=== PATIENT | female | born 1935 | race Caucasian/White ===

== ENCOUNTER 2017-11-05 13:12 | Day surgery (SDC) | payer MEDICARE ==
[~2017-11-05] VITALS: Ht 154.9 cm; Wt 52.4 kg
[~2017-11-05 13:12] MED LIST: ALBU90OI INH; AMOCLA875 PO; ASPI81EC PO; COLE625 PO; FURO40 PO; LEVSOD100 PO; LOSHYD; LOSHYD100 PO; METO100ER; METO100ER PO; POTCHL10ER PO; SYNTHROID/LEVOTHROID; TORSE20
[2017-11-05] MEDS ORDERED: AMLO5 (13:36)
[2017-11-05] MEDS ORDERED: NEBI5 (13:36)
== END 2017-11-05 15:25 | disposition home or self-care (01) ==
LOC: ORSCSDS 13:12
PROVIDERS: Anesthesiology
PROC: 3E0R33Z Introduction of Anti-inflammatory into Spinal Canal, Percutaneous Approach (ICD-10-PCS; principal; 2017-11-05 15:00)
DX: M50.321 Other cervical disc degeneration at C4-C5 level (principal); M48.02 Spinal stenosis, cervical region; I10 Essential (primary) hypertension; E03.9 Hypothyroidism, unspecified; Z79.82 Long term (current) use of aspirin; Z79.899 Other long term (current) drug therapy
CPT/HCPCS: J1040; J2250; J3010; J7040

== ENCOUNTER 2017-11-23 11:21 | Day surgery (SDC) | payer MEDICARE ==
[~2017-11-23] VITALS: Ht 154.9 cm; Wt 53.4 kg
[~2017-11-23 11:21] MED LIST changes: +AMLO5; +NEBI5
== END 2017-11-23 12:38 | disposition home or self-care (01) ==
LOC: ORSCSDS 11:21
PROVIDERS: Anesthesiology
PROC: 3E0R33Z Introduction of Anti-inflammatory into Spinal Canal, Percutaneous Approach (ICD-10-PCS; principal; 2017-11-23 12:15)
DX: M50.122 Cervical disc disorder at C5-C6 level with radiculopathy (principal); M48.02 Spinal stenosis, cervical region; I10 Essential (primary) hypertension; E03.9 Hypothyroidism, unspecified; Z79.82 Long term (current) use of aspirin; Z79.899 Other long term (current) drug therapy
CPT/HCPCS: J1040; J2250; J3010; J7040

== ENCOUNTER 2020-09-13 12:16 | Emergency (ER) | payer MEDICARE ==
[~2020-09-13] VITALS: Ht 154.9 cm; Wt 56.7 kg
[2020-09-13 13:10] LABS: BASOPHILS ABSOLUTE AUTO 0.06 K/mm3 (0.00-0.23); BASOPHILS PERCENT AUTO 1 % (0-2); EOSINOPHILS ABSOLUTE AUTO 0.14 K/mm3 (0.00-0.68); EOSINOPHILS PERCENT AUTO 1 % (0-6); Hematocrit 36.7 % (33.0-51.0); Hemoglobin 12.3 g/dL (11.5-16.0); IMMATURE GRAN ABSOLUTE AUTO 0.04 K/mm3 (0.00-0.10); IMMATURE GRAN PERCENT AUTO 0 % (0-1); LYMPHOCYTES ABSOLUTE AUTO 2.46 K/mm3 (0.84-5.20); LYMPHOCYTES PERCENT AUTO 25 % (21-46); MONOCYTES ABSOLUTE AUTO 1.42 K/mm3 (0.16-1.47); MONOCYTES PERCENT AUTO 14 % (4-13); Mean Corpuscular HGB 29.4 pg (26.0-34.0); Mean Corpuscular HGB Conc 33.5 g/dL (31.5-36.5); Mean Corpuscular Volume 88 fL (80-100); Mean Platelet Volume 9.5 fL (9.1-12.4); NEUTROPHILS PERCENT AUTO 59 % (41-73); Platelet Count 424 K/mm3 (150-400); RDW Coefficient Variation 13.4 % (11.7-14.2); RDW Standard Deviation 43.2 fL (35.1-46.3); Red Blood Cell Count 4.19 M/mm3 (3.80-5.20); White Blood Cell Count 10.02 K/mm3 (4.00-11.30)
[2020-09-13 13:29] LABS: Alanine Aminotransfer (ALT/SGP 22 U/L (12-78); Albumin, Blood 3.4 g/dL (3.4-5.0); Albumin/Globulin Ratio 0.7 (0.8-1.8); Alk Phos 156 U/L (50-136); Anion Gap 5 mmol/L (6-16); Aspartate Aminotrans (AST/SGOT 20 U/L (12-37); Bilirubin, Total 0.4 mg/dL (0.1-1.0); Blood Urea Nitrogen 46 mg/dL (8-24); Bun/Creatinine Ratio 37.1 (12.0-20.0); CO2, Blood 36 mmol/L (21-32); Calcium, Blood 10.2 mg/dL (8.5-10.1); Chloride, Blood 90 mmol/L (98-108); Creatinine, Blood 1.24 mg/dL (0.40-1.00); Globulin, Blood 4.7 g/dL (2.2-4.0); Glomerular Filtration Rate 44 (60-); Glucose, Blood 105 mg/dL (70-99); Potassium, Blood 3.6 mmol/L (3.5-5.5); Sodium, Blood 131 mmol/L (136-145); Total Protein, Blood 8.1 g/dL (6.4-8.2); Troponin I <0.015 ng/mL (0.000-0.040)
[2020-09-13] MEDS ORDERED: OXYC5 (17:06)
[2020-09-13] MEDS ORDERED: LETR2.5 PO (17:06)
[2020-09-13] MEDS ORDERED: CYCL10 (17:08)
[2020-09-13] MEDS ORDERED: METPRE4DP PO (19:45)
== END 2020-09-13 20:38 | disposition home or self-care (01) ==
LOC: ER 12:16
PROVIDERS: Physician Assistant
DX: M54.12 Radiculopathy, cervical region (principal); M96.89 Other intraoperative and postprocedural complications and disorders of the musculoskeletal system; Z79.899 Other long term (current) drug therapy; Z88.2 Allergy status to sulfonamides; Z88.5 Allergy status to narcotic agent
CPT/HCPCS: 36415; 71045; 72040; 73030; 80053; 83880; 84484; 85025; 93005; 93010; 96374; 96375; 99284-25; J2270; J2405

== ENCOUNTER 2020-09-19 15:39 | Emergency (ER) | payer MEDICARE ==
[~2020-09-19] VITALS: Ht 154.9 cm; Wt 54.4 kg
[~2020-09-19 15:39] MED LIST changes: +CYCL10; +LETR2.5 PO; +METPRE4DP PO; +OXYC5
[2020-09-19 16:24] LABS: BASOPHILS ABSOLUTE AUTO 0.11 K/mm3 (0.00-0.23); BASOPHILS PERCENT AUTO 1 % (0-2); EOSINOPHILS ABSOLUTE AUTO 0.17 K/mm3 (0.00-0.68); EOSINOPHILS PERCENT AUTO 1 % (0-6); Hemoglobin 12.9 g/dL (11.5-16.0); IMMATURE GRAN ABSOLUTE AUTO 0.49 K/mm3 (0.00-0.10); IMMATURE GRAN PERCENT AUTO 3 % (0-1); LYMPHOCYTES ABSOLUTE AUTO 3.25 K/mm3 (0.84-5.20); LYMPHOCYTES PERCENT AUTO 21 % (21-46); MONOCYTES ABSOLUTE AUTO 1.28 K/mm3 (0.16-1.47); MONOCYTES PERCENT AUTO 8 % (4-13); Mean Corpuscular HGB 29.5 pg (26.0-34.0); Mean Corpuscular HGB Conc 33.9 g/dL (31.5-36.5); Mean Corpuscular Volume 87 fL (80-100); Mean Platelet Volume 8.7 fL (9.1-12.4); NEUTROPHILS ABSOLUTE AUTO 10.54 K/mm3 (1.96-9.15); NEUTROPHILS PERCENT AUTO 67 % (41-73); Platelet Count 551 K/mm3 (150-400); RDW Standard Deviation 40.8 fL (35.1-46.3); Red Blood Cell Count 4.38 M/mm3 (3.80-5.20); White Blood Cell Count 15.84 K/mm3 (4.00-11.30)
[2020-09-19 16:48] LABS: Alanine Aminotransfer (ALT/SGP 18 U/L (12-78); Albumin, Blood 3.5 g/dL (3.4-5.0); Albumin/Globulin Ratio 0.9 (0.8-1.8); Alk Phos 128 U/L (50-136); Anion Gap 12 mmol/L (6-16); Aspartate Aminotrans (AST/SGOT 15 U/L (12-37); Bilirubin, Total 0.3 mg/dL (0.1-1.0); Blood Urea Nitrogen 52 mg/dL (8-24); Bun/Creatinine Ratio 36.6 (12.0-20.0); CO2, Blood 35 mmol/L (21-32); Calcium, Blood 9.9 mg/dL (8.5-10.1); Chloride, Blood 83 mmol/L (98-108); Creatinine, Blood 1.42 mg/dL (0.40-1.00); Globulin, Blood 4.1 g/dL (2.2-4.0); Glomerular Filtration Rate 37 (60-); Glucose, Blood 133 mg/dL (70-99); Potassium, Blood 2.9 mmol/L (3.5-5.5); Sodium, Blood 130 mmol/L (136-145); Total Protein, Blood 7.6 g/dL (6.4-8.2); Troponin I <0.015 ng/mL (0.000-0.040)
[2020-09-19] MEDS ORDERED: POTA20PAC PO (17:20)
== END 2020-09-19 18:10 | disposition home or self-care (01) ==
LOC: ER 15:39
PROVIDERS: Emergency Medicine
DX: R55 Syncope and collapse (principal); E87.6 Hypokalemia; I12.9 Hypertensive chronic kidney disease with stage 1 through stage 4 chronic kidney disease, or unspecified chronic kidney disease; N18.9 Chronic kidney disease, unspecified; Z79.899 Other long term (current) drug therapy
CPT/HCPCS: 71045; 80053; 83735; 84484; 85025; 93005; 93010; 99284-25; A9270; J7030

== ENCOUNTER 2020-10-25 08:25 | Day surgery (SDC) | payer MEDICARE ==
[~2020-10-25] VITALS: Ht 154.9 cm; Wt 55.3 kg
[~2020-10-25 08:25] MED LIST changes: +POTA20PAC PO
== END 2020-10-25 16:34 | disposition home or self-care (01) ==
LOC: ORSCSDS 08:25
PROVIDERS: Internal Medicine Gastroenterology
PROC: 0DBE8ZX Excision of Large Intestine, Via Natural or Artificial Opening Endoscopic, Diagnostic (ICD-10-PCS; principal; 2020-10-25 09:45)
PROC: 0DB58ZX Excision of Esophagus, Via Natural or Artificial Opening Endoscopic, Diagnostic (ICD-10-PCS; principal; 2020-10-25 09:45)
PROC: 0D758ZZ Dilation of Esophagus, Via Natural or Artificial Opening Endoscopic (ICD-10-PCS; principal; 2020-10-25 09:45)
DX: R13.10 Dysphagia, unspecified (principal); R19.7 Diarrhea, unspecified; K52.831 Collagenous colitis; K21.9 Gastro-esophageal reflux disease without esophagitis; N18.9 Chronic kidney disease, unspecified; E87.6 Hypokalemia; K44.9 Diaphragmatic hernia without obstruction or gangrene; K22.2 Esophageal obstruction; K22.10 Ulcer of esophagus without bleeding; K22.0 Achalasia of cardia; Z79.899 Other long term (current) drug therapy; Z79.82 Long term (current) use of aspirin
CPT/HCPCS: 88305; 88313; C1726; J2704; J7120

== ENCOUNTER 2020-11-18 10:40 | Emergency (ER) | payer MEDICARE ==
[~2020-11-18] VITALS: Ht 152.4 cm; Wt 54.4 kg
[2020-11-18] MEDS ORDERED: OXAYDO5 M1 PO (13:07)
[2020-11-18] MEDS ORDERED: ONDA4ODT MM (13:32)
== END 2020-11-18 13:45 | disposition home or self-care (01) ==
LOC: ER 10:40
DX: S42.341A Displaced spiral fracture of shaft of humerus, right arm, initial encounter for closed fracture (principal); I10 Essential (primary) hypertension; Z88.2 Allergy status to sulfonamides; Z88.5 Allergy status to narcotic agent; Z79.899 Other long term (current) drug therapy; Z79.82 Long term (current) use of aspirin; W01.198A Fall on same level from slipping, tripping and stumbling with subsequent striking against other object, initial encounter
CPT/HCPCS: 29105; 73030; 73060; 73562-LT; 96374-59; 96375-59; 96376-59; 99284-25; J2270; J2405; J3010

== ENCOUNTER 2024-02-16 18:01 | Inpatient (IN) | payer MEDICARE ==
[~2024-02-16] VITALS: Ht 144.8 cm; Wt 54.4 kg
[~2024-02-16 18:01] MED LIST changes: +ACET500 PO; +ALEN70; -ASPI81EC PO; +Aspir 8181 MG PO; +DIPATR PO; -FURO40 PO; +FURO80 PO; +GABA100 PO; +K-Dur20 MEQ PO; -LEVSOD100 PO; +LEVSOD75 PO; +LOSARTAN-HCTZ1 EACH PO; -LOSHYD100 PO; -NEBI5; +NEBI5 PO; +NITROLINGUAL12 GM; +ONDA4ODT MM; +OXAYDO5 M1 PO; -POTCHL10ER PO
[2024-02-16 18:29] LABS: BASOPHILS ABSOLUTE AUTO 0.06 K/mm3 (0.00-0.23); BASOPHILS PERCENT AUTO 1 % (0-2); EOSINOPHILS ABSOLUTE AUTO 0.25 K/mm3 (0.00-0.68); EOSINOPHILS PERCENT AUTO 2 % (0-6); Hemoglobin 12.4 g/dL (11.5-16.0); IMMATURE GRAN ABSOLUTE AUTO 0.08 K/mm3 (0.00-0.10); IMMATURE GRAN PERCENT AUTO 1 % (0-1); LYMPHOCYTES ABSOLUTE AUTO 3.29 K/mm3 (0.84-5.20); LYMPHOCYTES PERCENT AUTO 26 % (21-46); MONOCYTES ABSOLUTE AUTO 0.78 K/mm3 (0.16-1.47); MONOCYTES PERCENT AUTO 6 % (4-13); Mean Corpuscular HGB 29.1 pg (26.0-34.0); Mean Corpuscular HGB Conc 33.5 g/dL (31.5-36.5); Mean Corpuscular Volume 87 fL (80-100); Mean Platelet Volume 10.4 fL (9.1-12.4); NEUTROPHILS ABSOLUTE AUTO 8.42 K/mm3 (1.96-9.15); NEUTROPHILS PERCENT AUTO 65 % (41-73); Platelet Count 161 K/mm3 (150-400); RDW Coefficient Variation 13.7 % (11.7-14.2); RDW Standard Deviation 43.3 fL (35.1-46.3); Red Blood Cell Count 4.26 M/mm3 (3.80-5.20); White Blood Cell Count 12.88 K/mm3 (4.00-11.30)
[2024-02-16 18:55] LABS: Albumin, Blood 3.2 g/dL (3.4-5.0); Albumin/Globulin Ratio 0.8 (0.8-1.8); Bilirubin, Total 0.3 mg/dL (0.1-1.0); Bun/Creatinine Ratio 16.7 (12.0-20.0); Calcium, Blood 9.6 mg/dL (8.5-10.1); Creatinine, Blood 2.4 mg/dL (0.40-1.00); Globulin, Blood 3.8 g/dL (2.2-4.0); Potassium, Blood 3.4 mmol/L (3.5-5.5)
[2024-02-16] MEDS ORDERED: NS 1,000 ML IV SCH ×2 (21:00→23:00)
[2024-02-16 21:35] LABS: Source, Urine Clean Catch
[2024-02-16 21:54] LABS: Bilirubin, Urine Neg (Neg); Blood, Urine 1+ (Neg); Glucose Qualitative, Urine Neg (Neg); Ketones, Urine Neg (Neg); Leukocyte Esterase, Urine 1+ (Neg); Nitrite, Urine Neg (Neg); Protein, Urine Neg (Neg); Urobilinogen, Urine NORM (Normal)
[2024-02-16 22:07] LABS: Appearance, Urine Clear (Clear); Color, Urine Yellow (P-Yellow)
[2024-02-16 22:09] LABS: Bacteria Few /hpf; Red Blood Cells, Urine 0-2 /hpf (0-2); Squamous Epithelial Cells Few /hpf (Few); White Blood Cells, Urine 0-2 /hpf (0-5)
[2024-02-16 22:31] LABS: Thyroid Stimulating Hormone 0.716 uIU/mL (0.360-4.800)
[2024-02-16] MEDS ORDERED: Potassium Chloride 10 Meq Tablet SA PO ONE (23:00)
[2024-02-16 23:48] LABS: Influenza A, PCR NEGATIVE (NEGATIVE); Influenza B, PCR NEGATIVE (NEGATIVE); Resp Syncytial Virus, PCR NEGATIVE (NEGATIVE); SARS-Cov-2 (COVID-19) PCR, MMC NEGATIVE (NEGATIVE)
[2024-02-17 00:56] VITALS: BP 156/56
[2024-02-17] MEDS ORDERED: Acetaminophen 325 MG TABLET PO PRN (01:40)
[2024-02-17] MEDS ORDERED: NEBI10 PO (01:55)
[2024-02-17] MEDS ORDERED: LOSARTAN-HCTZ1 EAC5 PO (01:56)
[2024-02-17] MEDS ORDERED: BUME1 PO (01:57)
[2024-02-17] MEDS ORDERED: Diphenoxylat/Atrop 2.5 / 0.025MG 1 Tab PO PRN (02:40)
[2024-02-17 04:01] VITALS: BP 123/56
[2024-02-17 04:32] LABS: BASOPHILS ABSOLUTE AUTO 0.06 K/mm3 (0.00-0.23); BASOPHILS PERCENT AUTO 1 % (0-2); EOSINOPHILS ABSOLUTE AUTO 0.34 K/mm3 (0.00-0.68); EOSINOPHILS PERCENT AUTO 3 % (0-6); Hematocrit 34.4 % (33.0-51.0); Hemoglobin 11.4 g/dL (11.5-16.0); IMMATURE GRAN ABSOLUTE AUTO 0.05 K/mm3 (0.00-0.10); IMMATURE GRAN PERCENT AUTO 0 % (0-1); LYMPHOCYTES ABSOLUTE AUTO 2.79 K/mm3 (0.84-5.20); LYMPHOCYTES PERCENT AUTO 25 % (21-46); MONOCYTES ABSOLUTE AUTO 0.69 K/mm3 (0.16-1.47); MONOCYTES PERCENT AUTO 6 % (4-13); Mean Corpuscular HGB 28.8 pg (26.0-34.0); Mean Corpuscular HGB Conc 33.1 g/dL (31.5-36.5); Mean Corpuscular Volume 87 fL (80-100); Mean Platelet Volume 10.5 fL (9.1-12.4); NEUTROPHILS ABSOLUTE AUTO 7.25 K/mm3 (1.96-9.15); NEUTROPHILS PERCENT AUTO 65 % (41-73); Platelet Count 142 K/mm3 (150-400); RDW Coefficient Variation 13.5 % (11.7-14.2); RDW Standard Deviation 43.1 fL (35.1-46.3); Red Blood Cell Count 3.96 M/mm3 (3.80-5.20); White Blood Cell Count 11.18 K/mm3 (4.00-11.30)
[2024-02-17 05:05] LABS: Albumin, Blood 2.9 g/dL (3.4-5.0); Bilirubin, Total 0.3 mg/dL (0.1-1.0); Bun/Creatinine Ratio 17.7 (12.0-20.0); Creatinine, Blood 1.98 mg/dL (0.40-1.00); Potassium, Blood 3.3 mmol/L (3.5-5.5); Total Protein, Blood 5.9 g/dL (6.4-8.2)
[2024-02-17] MEDS ORDERED: Levothyroxine Sodium 0.075 MG Tab PO SCH (06:00)
--- NOTE | 2024-02-17 07:29 | NUR ---
ADMIT NOTE. A/OX4. ROOM AIR. UNSTEADY GAIT, 1 ASSIST WITH WALKER. IV FLUID REPLACEMENT. CONTINENT. SKIN INTACT. ABLE TO MAKE NEEDS KNOWN. CALLS APPROPRIATELY. CALL LIGHT IN REACH. NO ACUTE EVENTS OVERNIGHT.
[2024-02-17 07:30] VITALS: BP 120/53
[2024-02-17] MEDS ORDERED: Potassium Chl 20MEQ/Water100ML 100 ML IV STA (08:48)
[2024-02-17] MEDS ORDERED: Enoxaparin 30 MG/0.3 ML SYR SC SCH (09:00)
[2024-02-17] MEDS ORDERED: Aspirin 81 MG TabEC PO SCH (09:00)
[2024-02-17] MEDS ORDERED: NS 1,000 ML IV SCH (12:35)
[2024-02-17 15:49] VITALS: BP 150/68
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
[2024-02-17 20:28] VITALS: BP 160/55
[2024-02-18 02:41] VITALS: BP 148/59
--- NOTE | 2024-02-18 03:50 | NUR ---
SHIFT SUMMARY REMAINS ALERT AND ORIENTED. IVF INFUSING X1 BAG AT 75 ML/HR. CALLS APPROPRIATELY TO USE BATHROOM. REPORTS MIGRAINE AND PAIN TO LEFT WRIST OLD SURGERY SITE. PRN TYLENOL GIVEN. NONPITTING EDEMA TO BILATERAL LE, AND LEFT ARM WHERE FLUIDS ARE INFUSING. POWERGLIDE TO NANCY DRAWING BACK BLOOD AND FLUHSING WELL. 1 ASSIT WITH FWW TO BATHROOM
[2024-02-18 07:10] LABS: Bun/Creatinine Ratio 15.5 (12.0-20.0); Calcium, Blood 8.5 mg/dL (8.5-10.1); Creatinine, Blood 1.1 mg/dL (0.40-1.00); Potassium, Blood 3.3 mmol/L (3.5-5.5)
[2024-02-18 07:22] VITALS: BP 147/64
--- NOTE | 2024-02-18 14:26 | NUR ---
DISCHARGE PT A&OX4, COOPERATIVE WITH PROCEDURES. WAS TOLD BY PATIENT THAT DAUGHTER WAS WAITING IN [place] READY FOR HER TO BE DISCHARGED. UPON GOING OVER DISCHARGE MEDICATION LIST, PATIENT WAS CONFUSED ABOUT INSTRUCTIONS. CALLED DR SIMMS FOR VERIFICATION, TOLD PATIENT THE DOCTORS INSTRUCTIONS AND THAT DISCHARGE PAPERWORK IS CORRECT. LATER, CALLED NANY (PATIENTS DAUGHTER) WITH SAME INSTRUCTIONS. INFORMED TO SET UP APPOINTMENT WITH PRIMARY IN 1 WEEK. PATIENT WAS WHEELED DOWN TO FAMILY BY COFFEE URN ATTENDANT. POWERGLIDE WAS DC'D BY ELINOR MONTALVO BEFORE PATIENT WAS OUT OF ROOM.
== END 2024-02-18 13:58 | disposition home or self-care (01) | DRG 683 ==
LOC: ER 18:01 → MEDS 22:37 → EDBEDREQ 23:55 → MEDS 02-17 00:44
PROVIDERS: Emergency Medicine; Family Medicine; Internal Medicine; Physician Assistant; ADMIT Internal Medicine
DX: N17.9 Acute kidney failure, unspecified (principal); R78.81 Bacteremia; I13.10 Hypertensive heart and chronic kidney disease without heart failure, with stage 1 through stage 4 chronic kidney disease, or unspecified chronic kidney disease; N18.31 Chronic kidney disease, stage 3a; I34.1 Nonrheumatic mitral (valve) prolapse; E03.9 Hypothyroidism, unspecified; E87.6 Hypokalemia; E86.0 Dehydration; Z79.82 Long term (current) use of aspirin; Z79.890 Hormone replacement therapy; Z79.899 Other long term (current) drug therapy
CPT/HCPCS: 0241U; 36415; 70450; 80048; 80053; 81001; 84443; 85025; 87086; 99285-25; A9270; J1650; J3480; J7030